=== PATIENT | male | born 1950 | race Caucasian/White ===

== ENCOUNTER 2019-02-18 01:13 | Emergency (ER) | payer MEDICARE, OTHER ==
[~2019-02-18] VITALS: Ht 172.7 cm; Wt 83.0 kg
[~2019-02-18 01:13] MED LIST: ASPI-1169 PO; BENA20TA9 PO; CHLO25CA10 PO; LORA-258 PO
[2019-02-18 01:23] VITALS: BP 145/75
[2019-02-18] MEDS ORDERED: ASPIRIN 325 MG TABLET PO ONE (01:30)
--- NOTE | 2019-02-18 01:33 | NUR ---
TO BED 1 [facility] C/O SUBSTERNAL/NONRADIATING CP WITH SOB X3 HRS. PT ADMITS TO ETOH. PT REPORT THAT HE WAS SEEN AND EVALUATED AT [facility] YESTERDAY AND WAS DISCHARGED. SKIN WARM, NONDIAPHORETIC. PLACE PT ON CARDIAC MONITORING, CONTINUOUS POX. PENDING ER MD RICARDO.
--- NOTE | 2019-02-18 01:37 | NUR ---
ER MD AT BEDSIDE TO EVAL PT WITH ORDERS RECIEVED. WILL CARRY OUT ORDERS.
--- NOTE | 2019-02-18 01:40 | NUR ---
PT SCREAMING FOR A NURSE, PT REQUESTING MORPHINE. ER MD MADE AWARE.
--- NOTE | 2019-02-18 01:43 | NUR ---
PT CALLING FOR NURSE AGAIN AND REQUESTING FOR PAIN MEDICINE.
[2019-02-18 01:46] LABS: BASOPHILS # (AUTO) 0.1 /CMM (0.0-0.2); BASOPHILS % (AUTO) 1.4 % (0.0-2.0); EOSINOPHILS % (AUTO) 4.7 % (0.0-6.0); HEMATOCRIT 36 % (39-51); HEMOGLOBIN 11.4 g/dL (13.5-17.5); LYMPHOCYTES # (AUTO) 2.1 /CMM (0.8-4.8); LYMPHOCYTES % (AUTO) 26.1 % (20.0-44.0); MEAN CORPUSCULAR HGB CONC 32 g/dl (31.0-36.0); MEAN CORPUSCULAR VOLUME 75 fL (80-96); MONOCYTES # (AUTO) 0.9 /CMM (0.1-1.30); NEUTROPHILS # (AUTO) 4.6 /CMM (1.8-8.9); NEUTROPHILS % (AUTO) 56.8 % (43.0-81.0); PLATELET COUNT (AUTO) 499 /CMM (150-450); RED BLOOD CELL COUNT(AUTO) 4.81 MIL/uL (4.5-6.0)
--- NOTE | 2019-02-18 01:49 | NUR ---
PT REQUESTING TO SPEAK TO KATHY AZEVEDO. KATHY AZEVEDO MADE AWARE.
[2019-02-18 01:52] LABS: CALCIUM, SERUM 8.2 mg/dL (8.5-10.1); CARBON DIOXIDE 27 mmol/L (21-32); CHLORIDE 106 mmol/L (98-107); GLUCOSE 162 mg/dL (74-106); POTASSIUM 3.9 mmol/L (3.5-5.1); SODIUM SERUM 143 mmol/L (136-145); UREA NITROGEN, BLOOD 13 mg/dL (7-18)
--- NOTE | 2019-02-18 01:54 | NUR ---
ER MD AT BEDSIDE TALKING TO PT, PT WANTS TO SIGN OUT AMA. ER MD EXPLAINED ALL RISKS REGARDING LEAVING AMA. PT VERBALIZE UNDERSTANDING.
[2019-02-18 02:04] LABS: B-TYPE NATRIURETIC PEPTIDE 264 PG/ML (0-125)
--- NOTE | 2019-02-18 02:08 | NUR ---
Patient does not wish to proceed with medical care recommended by Dr. Steve). Patient given information related to possible complications, up to and including , which could occur as a result of leaving the hospital at this time. Patient verbalizes understanding of risks involved due to leaving against medical advice. Patient has signed AMA form.
== END 2019-02-18 02:10 | disposition left against medical advice (07) ==
LOC: ER 01:16
DX: R07.89 Other chest pain (principal); F10.229 Alcohol dependence with intoxication, unspecified; R00.0 Tachycardia, unspecified; I25.2 Old myocardial infarction; E11.9 Type 2 diabetes mellitus without complications; I11.9 Hypertensive heart disease without heart failure; Y90.5 Blood alcohol level of 100-119 mg/100 ml; Z95.5 Presence of coronary angioplasty implant and graft; Z79.82 Long term (current) use of aspirin
CPT/HCPCS: 36415; 80048-TC; 83880; 84484-TC; 85025-TC; G0480